=== PATIENT | male | born 1995 | race Caucasian/White ===

== ENCOUNTER → 2017-04-13 | Outpatient (CLI) | payer BC ==
--- NOTE | 2017-04-13 09:44 | US ---
EXAMINATION TYPE: US thyroid st tissue head/neck DATE OF EXAM: 04/13/2017 COMPARISON: NONE CLINICAL HISTORY: R22.1 Swelling lump or mass in neck. At patients right lateral posterior neck palpable area is a lymph node measuring 0.8cm. Long axis. IMPRESSION: Benign-appearing lymph node is noted on images saved at area of palpable abnormality pos terior lateral right neck.
== END | disposition home or self-care (01) ==
LOC: RADUSWWP 08:58
PROVIDERS: ATTEND Family Medicine
DX: R22.1 Localized swelling, mass and lump, neck (principal)
CPT/HCPCS: 76536